=== PATIENT | male | born 1970 | race Hispanic/Latino ===

== ENCOUNTER 2021-09-18 10:34 | Inpatient (IN) | payer OTHER ==
[2021-09-18] MEDS ORDERED: Ampicillin/Sulbactam 3 GM in Sodium Chloride 0.9% 100 ML IVPB SCH (11:00)
[2021-09-18 11:11] LABS: #Lymphocytes 1.5 thou/uL (1.20-3.40); #Monocytes 1.5 thou/uL (0.11-0.59); #Neutrophils 13.3 thou/uL (1.40-6.50); %Basophils 0.1 % (0.0-1.0); %Eosinophils 0.1 % (0.0-10.0); %Lymphocytes 9.1 % (21.0-51.0); %Monocytes 9.4 % (0.0-10.0); %Neutrophils 81.3 % (42.0-75.0); Mean Corpuscular HGB CONC 31.6 g/dL (32.0-36.0); Mean Corpuscular Hemoglobin 29.9 pg (27.0-31.0); Mean Corpuscular Volume 94.7 fL (78.0-98.0); Mean Platelet Volume 6.5 fL (7.4-10.4); Platelet Count 294 thou/uL (130-400); RBC Distribution Width 13.3 % (11.5-14.5); Red Blood Cell (RBC) Count 5.03 mill/uL (4.70-6.10); White Blood Cell (WBC) Count 16.3 thou/uL (4.8-10.8)
[2021-09-18 11:21] LABS: Bacteria/HPF None Seen HPF (None Seen); Bilirubin Negative (Negative); Blood, Urine 1+ (Negative); Clarity Clear (Clear); Glucose, Urine (Dipstick) Normal (Negative); Ketone, Urine 60 mg/dL (Negative); Leukocyte Negative Leu/uL (Negative); Nitrite Negative (Negative); Protein, Urine (Dipstick) 30 mg/dL (Neg-Trace); Squamous Epithelial None Seen HPF (0-3); WBC/HPF 0-3 HPF (0-3); pH, Urine 5.5 (5.0-9.0)
[2021-09-18 11:22] LABS: INR-International Normal Ratio 1.1; PTT 26.1 sec (22.9-36.1); Prothrombin Time 13.9 sec (12.0-14.7)
[2021-09-18] MEDS ORDERED: Dexamethasone 4 mg/ml Vial ONE (11:33)
[2021-09-18] MEDS ORDERED: Ketorolac Tromethamine 30 MG/ML VIAL ONE (11:33)
[2021-09-18] MEDS ORDERED: Piperacillin/Tazobactam 3.375 GM VIAL ONE (11:33)
[2021-09-18] MEDS ORDERED: Vancomycin 1 GM/200 ML BAG ONE (11:34)
[2021-09-18 11:36] LABS: ALT (SGPT) 20 U/L (8-55); AST (SGOT) 33 U/L (5-34); Alkaline Phosphatase 37 U/L (40-110); Anion Gap 15 mmol/L (10-20); BUN (Urea Nitrogen) 8 mg/dL (8.4-25.7); Calc. Creatinine Clearance 0 mL/min (70-130); Carbon Dioxide 23 mmol/L (22-29); Chloride 98 mmol/L (98-107); Globulin 3.3 g/dL (2.4-3.5); Glucose 94 mg/dL (70-105); Potassium 4.1 mmol/L (3.5-5.1); Protein, Total 7.3 g/dL (6.0-8.3); Sodium 132 mmol/L (136-145)
[2021-09-18] MEDS ORDERED: Morphine 4 MG/ML VIAL ONE (11:36)
[2021-09-18] MEDS ORDERED: Ondansetron PF 4 MG/2 ML Vial ONE ×2 (11:36→18:12)
[2021-09-18] MEDS ORDERED: Acetaminophen 650 MG Suppository PR PRN (12:24)
[2021-09-18] MEDS ORDERED: Ondansetron PF 4 MG/2 ML Vial IVP PRN (12:24)
[2021-09-18] MEDS ORDERED: Morphine 2 MG/ML VIAL SLOW IVP PRN (12:42)
[2021-09-18 14:59] LABS: SARS-CoV-2 NAA Rapid Test Not Detected (NotDetected)
[2021-09-18 17:30] VITALS: BMI 17.6
[2021-09-18] MEDS ORDERED: Lidocaine 1% w/Epinephrine 1:100K 20 ML VIAL ONE (17:46)
[2021-09-18] MEDS ORDERED: Bacitracin Zinc Ointment 30 gm TUBE ONE (17:47)
[2021-09-18] MEDS ORDERED: Chlorhexidine Gluconate 15 ML UDCUP SSP ONE (17:47)
[2021-09-18] MEDS ORDERED: Fentanyl 250 MCG/5 ML VIAL ONE (17:52)
[2021-09-18] MEDS ORDERED: Famotidine/PF 20 mg/2ml Vial ONE (17:53)
[2021-09-18] MEDS ORDERED: SUGAMMADEX SODIUM 200 MG/2 ML VIAL ONE (17:53)
[2021-09-18] MEDS ORDERED: Piperacillin/Tazobactam 3.375 GM in Sodium Chloride 0.9% 100 ML IVPB SCH (18:00)
[2021-09-18] MEDS ORDERED: Rocuronium Bromide 10 MG/ML (10ML VIAL) ONE (18:12)
[2021-09-18] MEDS ORDERED: Dexamethasone 20 MG/5 ML VIAL ONE (18:12)
[2021-09-18] MEDS ORDERED: PROPOFOL 200 MG/20 ML VIAL ONE (18:12)
[2021-09-18] MEDS ORDERED: Albuterol Sulfate HFA (OR ONLY) ONE ×2 (18:12→18:30)
[2021-09-18] MEDS ORDERED: Glycopyrrolate 0.2 MG/ML 5 ML SYRINGE ONE (18:12)
[2021-09-18] MEDS ORDERED: Lidocaine 1% PF 5 ML VIAL ONE (18:12)
[2021-09-18] MEDS ORDERED: Neomycin-Polymyxin 1 ML AMP ONE (18:43)
[2021-09-18] MEDS ORDERED: Promethazine HCl 25 MG/ML VIAL IVPB PRN (19:53)
[2021-09-18] MEDS ORDERED: Ondansetron HCl/PF 4 MG/2 ML Vial IVP PRN (19:53)
[2021-09-18] MEDS ORDERED: Promethazine HCl 25 MG/ML VIAL IM PRN (19:53)
[2021-09-18] MEDS ORDERED: HYDROmorphone 2 MG/ML VIAL SLOW IVP PRN (19:53)
[2021-09-18] MEDS ORDERED: Ketorolac Tromethamine 30 MG/ML VIAL IVP PRN (19:53)
[2021-09-18] MEDS ORDERED: Fentanyl 100 MCG/2 ML VIAL ONE (20:41)
[2021-09-18] MEDS ORDERED: Piperacillin/Tazobactam 4.5 GM in Sodium Chloride 0.9% 100 ML IVPB SCH (22:00)
[2021-09-18] MEDS: Piperacillin/Tazobactam 3.375 GM in Sodium Chloride 0.9% 100 ML IVPB SCH (22:48)
[2021-09-18] MEDS: Chlorhexidine Gluconate 15 ML UDCUP SSP SCH (22:48)
[2021-09-19 04:42] LABS: Hemoglobin 12.8 g/dL (14.0-18.0); Mean Corpuscular HGB CONC 32.3 g/dL (32.0-36.0); Mean Corpuscular Hemoglobin 30.6 pg (27.0-31.0); Mean Corpuscular Volume 94.7 fL (78.0-98.0); Mean Platelet Volume 6.5 fL (7.4-10.4); Platelet Count 254 thou/uL (130-400); RBC Distribution Width 13.3 % (11.5-14.5); White Blood Cell (WBC) Count 17.7 thou/uL (4.8-10.8)
[2021-09-19 05:01] LABS: ALT (SGPT) 14 U/L (8-55); AST (SGOT) 27 U/L (5-34); Albumin 3.2 g/dL (3.5-5.0); Alkaline Phosphatase 29 U/L (40-110); Anion Gap 13 mmol/L (10-20); BUN (Urea Nitrogen) 11 mg/dL (8.4-25.7); Bilirubin, Total 0.9 mg/dL (0.2-1.2); Calc. Creatinine Clearance 59 mL/min (70-130); Calcium 7.9 mg/dL (7.8-10.44); Carbon Dioxide 21 mmol/L (22-29); Chloride 101 mmol/L (98-107); Globulin 2.7 g/dL (2.4-3.5); Glucose 134 mg/dL (70-105); Potassium 4.3 mmol/L (3.5-5.1); Protein, Total 5.9 g/dL (6.0-8.3); Sodium 131 mmol/L (136-145)
[2021-09-19 05:14] LABS: Band 14 % (5-11); Lymphocytes 8 % (21-51); MDiff Complete? YES; Monocytes 2 % (0-10); Neutrophil 76 % (42-75)
[2021-09-19] MEDS: Chlorhexidine Gluconate 15 ML UDCUP SSP SCH ×2 (08:16→19:52)
[2021-09-19] MEDS: Losartan 25 MG TAB PO SCH (08:16)
[2021-09-19] MEDS: Piperacillin/Tazobactam 3.375 GM in Sodium Chloride 0.9% 100 ML IVPB SCH ×3 (08:16→22:36)
[2021-09-19] MEDS ORDERED: Ibuprofen 800 MG TAB PO PRN (09:47)
[2021-09-19] MEDS: Acetaminophen 325 MG TAB PO SCH ×3 (10:59→21:48)
[2021-09-19] MEDS: Vancomycin HCl 1.5 GM in Sodium Chloride 0.9% 250 ML 300 ML IVPB SCH (11:56)
[2021-09-19] MEDS: Famotidine 40 MG/5 ML Oral Suspension PO SCH (19:52)
[2021-09-19] MEDS ORDERED: Calcium Carbonate 500 MG ChewTAB PO PRN (22:21)
[2021-09-20] MEDS: Acetaminophen 325 MG TAB PO SCH ×3 (03:22→15:11)
[2021-09-20 05:05] LABS: #Lymphocytes 1.9 thou/uL (1.20-3.40); #Monocytes 0.9 thou/uL (0.11-0.59); #Neutrophils 11.8 thou/uL (1.40-6.50); %Basophils 0.1 % (0.0-1.0); %Eosinophils 0.2 % (0.0-10.0); %Lymphocytes 12.6 % (21.0-51.0); %Monocytes 6.4 % (0.0-10.0); %Neutrophils 80.7 % (42.0-75.0); Mean Corpuscular HGB CONC 32.5 g/dL (32.0-36.0); Mean Corpuscular Hemoglobin 30.5 pg (27.0-31.0); Mean Platelet Volume 6.5 fL (7.4-10.4); Platelet Count 313 thou/uL (130-400); RBC Distribution Width 13.4 % (11.5-14.5); Red Blood Cell (RBC) Count 4.24 mill/uL (4.70-6.10); White Blood Cell (WBC) Count 14.7 thou/uL (4.8-10.8)
[2021-09-20 05:25] LABS: ALT (SGPT) 19 U/L (8-55); AST (SGOT) 33 U/L (5-34); Albumin 3.2 g/dL (3.5-5.0); Alkaline Phosphatase 33 U/L (40-110); Anion Gap 10 mmol/L (10-20); BUN (Urea Nitrogen) 12 mg/dL (8.4-25.7); Bilirubin, Total 0.9 mg/dL (0.2-1.2); Calc. Creatinine Clearance 62 mL/min (70-130); Calcium 8.3 mg/dL (7.8-10.44); Carbon Dioxide 26 mmol/L (22-29); Chloride 101 mmol/L (98-107); Globulin 2.6 g/dL (2.4-3.5); Glucose 101 mg/dL (70-105); Potassium 4.3 mmol/L (3.5-5.1); Protein, Total 5.8 g/dL (6.0-8.3); Sodium 133 mmol/L (136-145)
[2021-09-20] MEDS: Chlorhexidine Gluconate 15 ML UDCUP SSP SCH (08:11)
[2021-09-20] MEDS: Losartan 25 MG TAB PO SCH (08:11)
[2021-09-20] MEDS: Piperacillin/Tazobactam 3.375 GM in Sodium Chloride 0.9% 100 ML IVPB SCH ×2 (08:11→15:10)
[2021-09-20] MEDS: Famotidine 40 MG/5 ML Oral Suspension PO SCH (08:12)
[2021-09-20] MEDS: Vancomycin HCl 1.5 GM in Sodium Chloride 0.9% 250 ML 300 ML IVPB SCH (11:38)
[2021-09-20 11:39] LABS: Vancomycin, Trough 1.3 ug/mL
[2021-09-20 17:19] VITALS: BP 145/82; TEMP 98.2
[2021-09-20] MEDS ORDERED: Vancomycin HCl 1.25 GM in Sodium Chloride 0.9% 250 ML 250 ML IVPB SCH (20:00)
== END 2021-09-20 18:30 | disposition home or self-care (01) | DRG 872 ==
LOC: ERS 10:34 → ERHOLD 12:07 → 2NO 15:46
PROVIDERS: ADMIT Family Medicine; ATTEND Family Medicine
PROC: 0J910ZZ Drainage of Face Subcutaneous Tissue and Fascia, Open Approach (ICD-10-PCS; principal; 2021-09-18)
PROC: 0CDXXZ0 Extraction of Lower Tooth, Single, External Approach (ICD-10-PCS; 2021-09-18)
DX: A41.89 Other specified sepsis (principal); K12.2 Cellulitis and abscess of mouth; E87.1 Hypo-osmolality and hyponatremia; I10 Essential (primary) hypertension; E78.5 Hyperlipidemia, unspecified; K05.219 Aggressive periodontitis, localized, unspecified severity; R31.9 Hematuria, unspecified; D64.9 Anemia, unspecified; G47.33 Obstructive sleep apnea (adult) (pediatric); Z20.822 Contact with and (suspected) exposure to COVID-19; Z98.890 Other specified postprocedural states; Z87.891 Personal history of nicotine dependence
CPT/HCPCS: 36415; 70491; 71045; 80053; 80202; 81003; 81015; 83605; 85025; 85610; 85652; 85730; 86140; 87040; 87070; 87086; 87205; 93005; 94760; 96365; 96375; J0295; J1100; J1885; J2270; J2405; J2543; J2704; J3010; J3370; J3490; J7050; S0028; U0002

== ENCOUNTER 2023-01-08 19:00 | Outpatient (CLI) | payer OTHER | END 2023-01-08 19:01 | disposition home or self-care (01) | LOC: SLEEPLAB 19:00 | PROVIDERS: ATTEND Student in an Organized Health Care Education/Training Program | DX: G47.33 Obstructive sleep apnea (adult) (pediatric) (principal); E66.9 Obesity, unspecified; R06.83 Snoring; R09.02 Hypoxemia; Z68.36 Body mass index [BMI] 36.0-36.9, adult | CPT/HCPCS: 95811 ==